=== PATIENT | male | born 1960 | race Caucasian/White ===

== ENCOUNTER 2019-06-26 00:21 | Outpatient (CLI) | payer BC, SELFPAY ==
[2019-06-26 12:50] LABS: CREATININE 0.86 mg/dL (0.70-1.30); Calculated LDL 162 mg/dL; Cholesterol 223 mg/dL (<200); Glucose 78 mg/dL (74-106); HDL Cholesterol 35 mg/dL (40-60); Triglyceride 130 mg/dL (<150)
== END 2019-06-26 00:41 ==
PROVIDERS: PCP Family Medicine; Visit Provider Family Medicine
DX: Z00.00 Encounter for general adult medical examination without abnormal findings (principal); Z13.220 Encounter for screening for lipoid disorders; Z13.1 Encounter for screening for diabetes mellitus
CPT/HCPCS: 36415; 80061; 82947; 82565

== ENCOUNTER 2021-07-05 03:10 | Outpatient (CLI) | payer OTHER, SELFPAY ==
[2021-07-05 16:11] LABS: Calculated LDL 134 mg/dL (<100); Cholesterol 231 mg/dL (<200); Glucose 117 mg/dL (74-106); HDL Cholesterol 44 mg/dL (40-60); Triglyceride 267 mg/dL (<150)
== END 2021-07-05 03:11 | disposition home or self-care (01) ==
LOC: LBO 03:11
PROVIDERS: PCP Family Medicine; Visit Provider Family Medicine
DX: E78.5 Hyperlipidemia, unspecified (principal); R73.9 Hyperglycemia, unspecified; Z12.5 Encounter for screening for malignant neoplasm of prostate
CPT/HCPCS: 36415; 80061; 82947; 84153

== ENCOUNTER 2021-07-11 03:20 | Outpatient (CLI) | payer OTHER, SELFPAY ==
--- NOTE | 2021-07-11 11:00 | NS.NUTBLAN_ITS ---
Costa was referred to [facility] for weight management and strategies to lower cholesterol level. PMH: overweight, hyperlipidemia. BMI 34 Labs: 07/05/21: tri, chol: 231, LDL: 134, HDL: 44. 5'7 218.5 lbs (with boots) Diet recall: beninese yogurt with berries and 1/4 c oatmeal, 12 ritz crackers, sandwich with pringles and 2 puddings, cereal and milk for dinner or grilled chicken and potato. Exercise; walks 1 mile on treadmill and lifts weights couple times per week. Session today focused on how to adjust his meal plan to include less simple carbs, more lean protein and non starchy vegetables. Encouraged Costa to limit carbs to 80-100 grams daily, and aim for 60-80 g protein. Encouraged increased exercise of 14 miles per week with weight lifting of 20 minutes 3 x week. Goal weight:<200 lbs. Suspect 10% weight loss will normalize lipids. Goal weight loss per month: 5 lbs Follow up planned: 08/18/21 at 11 am.
== END 2021-07-11 03:21 | disposition home or self-care (01) ==
LOC: DS 03:20
PROVIDERS: PCP Family Medicine; Visit Provider Dietitian, Registered
DX: E66.3 Overweight (principal); E78.5 Hyperlipidemia, unspecified; Z68.34 Body mass index [BMI] 34.0-34.9, adult; Z71.3 Dietary counseling and surveillance
CPT/HCPCS: 97802

== ENCOUNTER 2021-08-25 02:48 | Outpatient (CLI) | payer OTHER, SELFPAY ==
--- NOTE | 2021-08-25 14:00 | NS.NUTBLAN_ITS ---
Costa returns for weight management counseling. 5'7 Wt: 200 lbs. BMI: 31. Diet: has been following a lower carb diet (80-100 g daily) with increased intake of lean protein and healthy fats. Has lost 18 lbs in 6 weeks and feels great. Has lost 2 pant sizes. Has not been able to exercise due to leg injury but feels well following lower carb, high protein diet. Session today reviewed meal plan and adjusted for increased variety. No new labs, suspect lipids have improved with 9% weight loss. Goal wt: 180 lbs in next 6 months. Follow up scheduled for 03/19/22 at 2 pm.
== END 2021-08-25 02:49 | disposition home or self-care (01) ==
LOC: DS 02:48
PROVIDERS: PCP Family Medicine; Visit Provider Dietitian, Registered
DX: E66.3 Overweight (principal); Z68.31 Body mass index [BMI] 31.0-31.9, adult; Z71.3 Dietary counseling and surveillance
CPT/HCPCS: 97803

== ENCOUNTER 2022-07-11 02:25 | Outpatient (CLI) | payer OTHER, SELFPAY ==
[2022-07-11 14:44] LABS: Calculated LDL 158 mg/dL (<100); Cholesterol 247 mg/dL (<200); HDL Cholesterol 54 mg/dL (40-60); Triglyceride 178 mg/dL (<150)
[2022-07-12 10:02] LABS: PSA, Screening 1.9 ng/mL (<=4.5)
== END 2022-07-11 02:26 | disposition home or self-care (01) ==
PROVIDERS: PCP Family Medicine; Visit Provider Emergency Medicine
DX: E78.5 Hyperlipidemia, unspecified (principal); Z12.5 Encounter for screening for malignant neoplasm of prostate
CPT/HCPCS: 36415; 80061; 84153

== ENCOUNTER 2022-07-30 15:00 | Outpatient (CLI) | payer OTHER, SELFPAY ==
--- NOTE | 2022-07-30 15:00 | NS.NUTBLAN_ITS ---
Costa returns for follow up on weight and lipid management. Wt: 205 lbs down 13 lbs this year. Goal Wt: 190 lbs Diet Recall: yogurt, crackers and cheese, salad, scrambled eggs and toast Exercise: none regular Reviewed meal plan and made suggestions to better meet macronutrient needs for optimal weight loss and development of lean body mass. . Encouraged 150 min exercise per week along with weight training. Goal: 5 lbs weight loss per month. Follow up 12/17/22 at 3 pm.
== END 2022-07-30 16:00 ==
LOC: DS 08-03 11:53
PROVIDERS: PCP Family Medicine; Visit Provider Dietitian, Registered
DX: E66.3 Overweight (principal); E78.5 Hyperlipidemia, unspecified; Z71.3 Dietary counseling and surveillance
CPT/HCPCS: 97803

== ENCOUNTER 2022-11-23 01:33 | Outpatient (CLI) | payer OTHER, SELFPAY ==
[2022-11-23 15:32] LABS: Calculated LDL 165 mg/dL (<100); Cholesterol 246 mg/dL (<200); HDL Cholesterol 54 mg/dL (40-60); Triglyceride 137 mg/dL (<150)
--- NOTE | 2022-12-18 13:32 | W.NUTRFU ---
Date of service: 12/18/22 Time of Service: 13:32 Nutrition Note NOTE: Costa returns for follow up on weight and lipid management. Wt: 212 lbs , up 7 lbs in last 6 months. Goal Wt: 190 lbs Labs: 11/23/22: Chol: 246, LDL: 165, HDL: 54, Tri. Diet Recall: latvian muffin with PB for Breakfast, often snacks during day on cheese and crackers, Dinner: well balanced, home made Exercise: walks 12 miles per week Costa has regained some of his lost weight and lipids remain elevated. His goal is to avoid medication for his hyperlipidemia, however, has been unable to make any significant reductions with life style changes. Only lipid that improved in last year are his triglycerides. Encouraged increased focus on diet and exericse and to follow up with his PCP re: medication options to help lower his LDL cholesterol. Follow up planned 04/01/23 at 3 pm. Time Spent in Nutritional Counseling and Treatment: 30
== END 2022-11-23 01:34 | disposition home or self-care (01) ==
LOC: LBO 01:34
PROVIDERS: PCP Family Medicine; Visit Provider Family Medicine
DX: E78.5 Hyperlipidemia, unspecified (principal)
CPT/HCPCS: 36415; 80061

== ENCOUNTER 2023-02-15 02:18 | Outpatient (CLI) | payer OTHER, SELFPAY ==
[2023-02-18 21:28] LABS: Tissue Transglutaminase Ab IgA <1.2 U/mL; Tissue Transglutaminase Ab IgG 3.3 U/mL
== END 2023-02-15 02:19 | disposition home or self-care (01) ==
PROVIDERS: PCP Family Medicine; Visit Provider Family Medicine
DX: K52.9 Noninfective gastroenteritis and colitis, unspecified (principal)
CPT/HCPCS: 36415; 83516

== ENCOUNTER 2023-05-03 06:10 | Day surgery (SDC) | payer OTHER, SELFPAY ==
--- NOTE | 2023-05-02 20:10 | W.PM.DSUDISC ---
Date of service: 05/03/23 Time of Service: 08:30 Discharge Plan Disposition Patient Disposition: Home Condition: Good Discharge Details Reason For Visit: colon scope Attending Provider: Maricarmen Vanegas Primary Care Provider: Sai Felix Home Meds and New Rx's Prescriptions: Continued Men's 50 Plus Multivitamin 400-20-370 mcg tablet 1 tab PO DAILY Discontinued polyethylene glycol 3350 17 gram/dose powder 17 g PO ONCE Qty: 238 0RF Rx Instructions: Take per colonoscopy instructions provided by ordering providers office bisacodyl [Dulcolax (bisacodyl)] 5 mg tablet,delayed release (DR/EC) 5 mg PO ONCE Qty: 4 0RF Rx Instructions: Take per colonoscopy instructions provided by ordering providers office Discharge Instructions Additional Instructions: [facility] Colonoscopy Post-Op Instructions Instructions for Everyone who is given Anesthesia: For your safety, please do the following for the next twenty-four (24) hours: *Do Not operate a motor vehicle (car, truck, motorcycle, etc.) *Do Not drink alcoholic beverages or use any recreational drugs for the first 24 hours or while taking pain medications. The medications in your body may have a reaction that can be dangerous. *Do Not make any important decisions or sign any important papers. Findings: Follow up: 1. No lifting over 20 pounds or strenuous activity for the first 24 hours after your procedure. After 24 hours there are no restrictions on your activity but you may feel fatigued for a few days. 2. After you arrive home you may have a light meal and return to your normal diet as you can tolerate it without feeling sick to your stomach. 3. You may have a bloated, gaseous feeling in your belly (abdomen) after a colonoscopy. Passing gas and belching will help. Walking or lying down on your left side with your knees flexed may relieve the discomfort. Call the office at [phone] (Office) or [phone] (Hospital) right away if you notice any of the following: a.Vomiting of blood or ?coffee ground stools?. b.Rectal bleeding 1Tbsp, blood clots or continuous bleeding. c.Severe belly (abdominal) pain. d.A hard distended belly (abdomen) and an inability to pass gas. 4. Please don?t expect to have a normal BM (bowel movement) for 2-3 days after your procedure. 5. If there are questions regarding the findings of your procedure, please contact your doctor 6. If you are unable to contact your doctor with a problem, contact the hospital at [phone]. 7. Continue all your regular medications unless directed otherwise. I understand the above instructions and have no questions. Signature of Patient or Adult Escort Name of Responsible Adult Escort Signature of Nurse Date/Time DIVERTICULAR DISEASE OVERVIEW???A diverticulum is a pouch-like structure that can form through points of weakness in the muscular wall of the colon (ie, at points where blood vessels pass through the wall). Diverticulosis affects men and women equally. The risk of diverticular disease increases with age. It occurs throughout the world but is seen more commonly in developed countries. WHAT IS DIVERTICULAR DISEASE? Diverticulosis???Diverticulosis merely describes the presence of diverticula. Diverticulosis is often found during a test done for other reasons, such as flexible sigmoidoscopy, colonoscopy, or barium enema. Most people with diverticulosis have no symptoms and will remain symptom free for the rest of their lives. A person with diverticulosis may have diverticulitis, or diverticular bleeding. Diverticulitis???Inflammation of a diverticulum (diverticulitis) occurs when there is thinning and breakdown of the diverticular wall. This may be caused by increased pressure within the colon or by hardened particles of stool, which can become lodged within the diverticulum. The symptoms of diverticulitis depend upon the degree of inflammation present. The most common symptom is pain in the left lower abdomen. Other symptoms can include nausea and vomiting, constipation, diarrhea, and urinary symptoms such as pain or burning when urinating or the frequent need to urinate. Diverticulitis is divided into simple and complicated forms. ?Simple diverticulitis, which accounts for 75 percent of cases, is not associated with complications and typically responds to medical treatment without surgery. ?Complicated diverticulitis occurs in 25 percent of cases and usually requires surgery. Complications associated with diverticulitis can include the following: ?Abscess ? a localized collection of pus ?Fistula ? an abnormal tract between two areas that are not normally connected (eg, bowel and bladder) ?Obstruction ? a blockage of the colon ?Peritonitis ? infection involving the space around the abdominal organ ?Sepsis ? overwhelming body-wide infection that can lead to failure of multiple organs Diverticular bleeding???Diverticular bleeding occurs when a small artery located within a diverticulum is eroded and bleeds into the colon. Diverticular bleeding usually causes painless bleeding from the rectum. In approximately 50 percent of cases, the person will see maroon or bright red blood with bowel movements. Is bleeding with a bowel movement normal?It is not normal to see blood in a bowel movement; this can be a sign of several conditions, most of which are not serious (eg, hemorrhoids) but some of which are serious and require immediate treatment. Anyone who sees blood after a bowel movement should consult with their healthcare provider to determine if further testing or evaluation is needed. DIVERTICULOSIS AND DIVERTICULITIS DIAGNOSIS???Diverticulosis is often found during tests performed for other reasons. ?Barium?enema ? This is an x-ray study that uses barium in an enema to view the outline of the lower intestinal tract. This is an older test and has been largely replaced by computed tomography (CT) scan. ?Flexible sigmoidoscopy ? This is an examination of the inside of the sigmoid colon with a thin, flexible tube that contains a camera. ?Colonoscopy ? This is an examination of the inside of the entire colon. ?CT scan ? A CT scan is often used to diagnose diverticulitis and its complications. If diverticulitis (not just diverticulosis) is suspected, the above three tests should not be used because of the risk of perforation. TREATMENT Diverticulosis???People with diverticulosis who do not have symptoms do not require treatment. However, most clinicians recommend increasing fiber in the diet, which can help to bulk the stools and possibly prevent the development of new diverticula, diverticulitis, or diverticular bleeding. Fiber is not proven to prevent these conditions in all patients but may help to control recurrent episodes in some. Increase fiber???Fruits and vegetables are a good source of fiber.? Fiber content of packaged foods can be calculated by reading the nutrition label. Seeds and nuts???Patients with diverticular disease have historically been advised to avoid whole pieces of fiber (such as seeds, corn, and nuts) because of concern that these foods could cause an episode of diverticulitis. However, this belief is completely unproven. We do not suggest that patients with diverticulosis avoid seeds, corn, or nuts. Diverticulitis???Treatment of diverticulitis depends upon how severe your symptoms are. Home treatment???If you have mild symptoms of diverticulitis (mild abdominal pain, usually left lower abdomen), you can be treated at home with a clear liquid diet and oral antibiotics. However, if you develop one or more of the following signs or symptoms, you should seek immediate medical attention: ?Temperature >100.1?F (38?C) ?Worsening or severe abdominal pain ?An inability to tolerate fluids Hospital treatment???If you have moderate to severe symptoms, you may be hospitalized for treatment. During this time, you are not allowed to eat or drink; antibiotics and fluids are given into a vein. If you develop an abscess of the colon, you may require drainage of the abscess (usually performed by placing a drainage tube across the abdominal wall) or by surgically opening the affected area. Surgery???If you develop a generalized infection in the abdomen (peritonitis), you will usually require an emergency operation. A two-part operation may be necessary in some cases. ?The first operation involves removal of the diseased colon and creation of a colostomy. A colostomy is an opening between the colon and the skin, where a bag is attached to collect waste from the intestine. The lower end of the colon is temporarily sewed closed to allow it to heal. ?Approximately three to six months later, a second operation is performed to reconnect the two parts of the colon and close the opening in the skin. You are then able to empty your bowels through the rectum. Sometimes patients require up to a year to recover from the first operation, depending on how sick they were. In non-emergency situations, the diseased area of the colon can be removed and the two ends of the colon can be reconnected in one operation, without the need for a colostomy. Surgery versus medical therapy???An operation to remove the diseased area of the colon may be necessary if you do not improve with medical therapy. After an episode of uncomplicated diverticulitis, elective surgery is generally not required as the risk of another attack or requiring emergency surgery is low. However, patients with persistent symptoms attributable to diverticulitis, a history of complicated diverticulitis, or a compromised immune system should be evaluated for possible surgery to prevent another attack. In such patients, another attack has been associated with a higher risk of complications or . Of course, the decision will also depend in part upon your other medical conditions and ability to undergo surgery. In many cases, an elective operation can be performed laparoscopically, using small incisions, rather than the typical vertical (up and down) abdominal incision. Laparoscopic surgery usually allows you to recover more quickly and shortens the hospital stay. After diverticulitis resolves???After an episode of diverticulitis resolves, if you have not had a recent colonoscopy, the entire length of the colon should be evaluated to determine the extent of disease and to rule out the presence of abnormal lesions such as polyps or cancer. Recommended tests include colonoscopy, barium enema and sigmoidoscopy, or CT colonography. Diverticular bleeding???Most cases of diverticular bleeding resolve on their own. However, some people will need further testing or treatment to stop bleeding, which may include a colonoscopy, angiography (a treatment that blocks off the bleeding artery), bleeding scan, or surgery. DIVERTICULAR DISEASE PROGNOSIS Diverticulosis???Over time, diverticulosis may cause no problems or it may cause episodes of bleeding and/or diverticulitis. Approximately 15 to 25 percent of people with diverticulosis will develop diverticulitis, while 5 to 15 percent will develop diverticular bleeding. Diverticulitis???Approximately 85 percent of people with uncomplicated diverticulitis will respond to medical treatment, while approximately 15 percent of patients will need an operation. After successful treatment for a first attack of diverticulitis, one-third of patients will remain asymptomatic, one-third will have episodic cramps without diverticulitis, and one-third will go on to have a second attack of diverticulitis. The prognosis tends to remain similar following a second attack of diverticulitis. Only 10 percent of people remain symptom-free after a second attack. Subsequent attacks tend to be of similar severity, not increasing in severity as previously believed. High Fiber Diet What is Dietary Fiber? All fiber comes from plants, bushes, ahmet or trees.? Of course, the ones that we eat provide us with fruits, vegetables and grains.? There are many different types of fiber but the three that are most important to the health of the body are: Insoluble Fiber This fiber does not dissolve in water, nor is it fermented by the bacteria residing in the colon.? Rather, it retains water and in so doing, helps to promote a larger, bulkier and more regular bowel activity.? This, in turn, may be important in preventing disorder such as diverticulosis and hemorrhoids, and in sweeping out certain toxins and cancer causing carcinogens.? Sources of insoluble fiber are: ? whole grain wheat and other whole grains ? corn bran, including popcorn, unflavored and unsweetened ? nuts and seeds ? potatoes and the skins from most fruits from trees such as apples, bananas and avocados ? many green vegetables such as green beans, zucchini, celery and cauliflower ? some fruit plants such as tomatoes and kiwi Soluble Fiber These fibers are fermented or used by the colon bacteria as a food source or nourishment.? When these good bacteria grow and thrive, many health benefits occur in both the colon and the body.? Soluble fiber is present in some degree in most edible plant foods, but the ones with the most soluble fiber include: ? legumes such as peas and most beans, including soybeans ? oats, rye and barley ? many fruits such as berries, plums, apples bananas and pears ? certain vegetables such as broccoli and carrots ? most root vegetables ? psyllium husk supplement products Benefits of a High Fiber Diet The health benefits of a high fiber diet, consumed on a regular basis and reaching recommended amounts (below), are now fairly well-defined. There are some additional benefits in the early research stage with the prebiotic soluble fibers. What is now known regarding a high fiber diet include: Bowel Regularity A high fiber diet promotes regularity with a softer, bulkier and regular stool pattern. This decreases the chance of hemorrhoids, diverticulosis and perhaps colon cancer. Cholesterol and Reduced Triglycerides The soluble fibers are the ones that will reduce cholesterol levels when used on a regular basis. Psyllium husk and prebiotic soluble fiber will also reduce cholesterol. They may also reduce the incidence of coronary heart disease. Oats, flax seeds and legumes or beans are the recommended fibers. Colon Polyps and Cancer It is still not certain if a high fiber diet helps prevent colon cancer. Considerable research suggests that this may occur. Certainly it makes sense to increase regularity and so speed the movement of cancer causing carcinogens through the bowel. In addition, reducing a heavy meat diet reduces the bile flow from the liver in a favorable way. This, too, reduces the amount of carcinogens that reach and are manufactured in the colon. Finally, a high fiber diet, including prebiotic soluble fiber, increases the integrity and health of the wall of the colon. The risk of cancer may be reduced. Colon Wall Integrity A high fiber diet changes the bacterial makeup of the colon toward a more favorable balance. For instance, it is known that those people with obesity, diabetes type 2 and inflammatory bowel disease have a predominance of bad bacteria in the colon. This, in turn, may render the bowel wall weak and allow bacteria and, indeed, even toxins to seep through. A high fiber diet with a modest reduction in animal and meat products may return the bacterial makeup to a more positive balance. This, in particular, has been seen when the soluble fiber prebiotics are added to the diet. Blood Sugar Soluble fiber such as in legumes (beans), oats and in prebiotic fibers slows the absorption of blood sugar and so helps regulate the sugar in the blood. Insoluble fiber on a regular basis is associated with reduced risk of type 2 diabetes. Weight Loss High fiber diets are more filling and give a sense of fullness sooner than an animal and meat based diet does. In addition, the soluble prebiotic fibers have been shown to turn off the hunger hormones produced in the wall of the gut and to increase the hormones that give a sense of fullness. Those hormones are made in the wall of the gut. New medical research has shown that the bacterial makeup in the colon in overweight people is abnormal to the extent that they manufacture and absorb almost twice the number of calories through the colon wall as do normals. Prebiotic fibers (below) will help change this hormonal balancein a favorable way. Bacteria and the Function of the Colon The colon finishes the digestive process. Hopefully, the waste products move through in a nice regular manner. Insoluble fibers help this process by retaining water and so producing a bulkier, softer stool, which is easy to pass. The additional role of the colon is to provide a home for an enormous number of micro-organisms, mostly bacteria. Recent research has shown that there are over 1,000 species of bacteria with a total bacterial count ten times the number of cells in the body. These bacteria play a major role in keeping the colon wall itself healthy. In addition, these good bacteria produce a very strong immune system for the body. They significantly increase calcium absorption and bone density. They provide other documented benefits. It is the soluble fibers in the diet that are so effective in stimulating the growth of good colon bacteria. How Much is Enough? The amount of fiber in food is measured in grams.? National nutritional authorities recommend the following amounts of dietary fiber daily. Under Age 50? Over Age 50 Men? 38 grams? 30 grams Women??? 25 grams? 21 grams For a week or so, it is best to tally the amount of fiber you are consuming.? Boxed and packaged foods will have the amount of fiber per serving on the nutrition label. Which Fibers and Which Foods are Best? As noted, healthy fiber is only found in plants. The three major categories are whole grains, fruits and vegetables. Whole Grains Wheat, oats, barley, wild or brown rice, amaranth, buckwheat, bulgur, corn, millet, quinoa, rye, sorghum, teff and triticals. By far, wheat, oats and wild or brown rice are most common. Always buy whole grain products. White bread, baked goods and rolls almost always are made from wheat flour. Wheat flour is white because most of the fiber, vitamins and other nutrients have been removed. Try not buy enriched grains. What this means is that simple white flour has had vitamins added to it by the model technician. The word, enriched, implies a good and healthy product. On the contrary, enriched means that most of the fiber has been removed and a few vitamins added. Fruits Fruits come from trees such as apple and pear or from bushes or ahmet. You should eat a wide variety of fruits, preferably with every meal. In many cases, the skin of a fruit such as apple will contain much of the insoluble fiber while the pulp contains most of the soluble fiber. To the extent possible, buy organic fruits as these will have little or no pesticides. Always wash fruit. Vegetables Eat a wide variety of vegetables. They should be a mainstay of lunch and dinners. Frozen vegetables retain as much nutrition and fiber as fresh vegetables. As with fruit, try to buy organic to reduce any residual pesticide ingestion. Wash fresh vegetables thoroughly. Cruciferous vegetables such as broccoli, [place] sprouts and cauliflower contain certain chemicals such as sulforaphane. This substance has very strong anti-cancer properties and should be eaten frequently. Legumes, Beans, Peas and Soybeans These vegetables have plenty of soluble fiber and should be part of a varied vegetable intake. Beans, in particular, contain a certain type of fiber that may lead to harmless gas or bloating. Nuts and Seeds These are rich sources of fiber and are a good substitute for sweets such as candies and baked sweet goods. While nuts and seeds are rich in fiber, they also contain vegetable fat and so can and do add calories. Read the Labels As noted, fresh and frozen foods are usually better.? They have good nutrition and few, if any, chemicals added to them.? When buying packaged foods and, in particular grains, look for three things: ? The first word on the label should be whole, such as whole wheat or whole grain. ? Check out the calories and the amount of fiber in a serving. ? How many and what other additives or chemicals are added.? Fewer is always better.? Do you know what each additive does?? Some are added not for the benefit of the fruit buyer but rather for manufacturers.? These could and do include sugar, artificial flavor, chemicals to prevent oxidation and spoilage, emulsifiers to blend the product.? You have to be a detective homicide squad. Fiber Facts, Nuggets and Pearls ? For breakfast you can easily get the day started well by using a high fiber, whole grain cereal.? Check the labels.? Add fruit such as blueberries and bananas.? If you are an egg eater, use whole wheat or grain toast.? Adding wheat germ gives you a good fiber kick. ? Always use whole grain or wheat with rolls and sandwiches.? Does your fast food store not have them?? Perhaps you look elsewhere.? Eating an occasional black ward or veggie burger provides variety. ? Snacks should consist of fruit and/or nuts.? While nuts are loaded with fiber, they are an energy rich food, meaning they have a lot of calories in a small packet. ? Fruit juices should contain pulp.? Clear juices such as clear orange, pear or apple juice contain little fiber and have a lot of fructose.? Prune juice is usually high in fiber. ? Homemade soups ? adding fresh or frozen vegetables to a chicken or vegetable stock is a good way to start homemade soup. ? Salads ? adding cooked and then chilled vegetables provide great flavoring to almost any salad.? Remember, a balderas salad has lots of cooked corn in it.? Small slices of apples or oranges and nuts such as chopped walnuts or sliced almonds always adds taste, variety and fiber to almost any salad. ? Fruit ? Try to eat fruit of some type with almost every meal. ? Rethink how you place the various foods on your dinner plate.? Reducing the portions of the meat or animal food portion to the side with equal or more portions of vegetables, legumes and fruits portion always allows for more fiber.? There was never anything magic about making the meat or animal food portion the main part of the dinner plate.? Eating from smaller plates can, over time, trick your mind and equipment operator intermodal yard habit of using a dinner plate.? Again, there is nothing magic in an 11, 12, or 13 inch dinner plate. Fiber Supplements There are a variety of fiber supplements available on the food or pharmacy shelves. Psyllium This soluble plant fiber has been used in [place] for over 2,000 years. It is a soluble fiber with mucilage in it. This acts to retain a lot of water and also is fermented by colon bacteria. When 7 grams a day are used, it does lower cholesterol. Metamucil in various forms is psyllium. Methyl Cellulose All the cellulose products come from finely ground wood chips which are then treated in a variety of ways such as boiling in acids. Methyl cellulose is an insoluble fiber which does dissolve in water. It is also an emulsifier, meaning it blends oils and water. Citrucel is methyl cellulose (MC). MC may not be appropriate for Crohn?s disease or ulcerative colitis as several medical studies have shown that certain emulsifiers dissolve the mucous lining of the colon in animals prone to Crohn?s disease. This then allows bacteria to invade the underlying tissue. Fiber and Gas Everyone has intestinal gas and that is a good thing.? It means that bacteria, hopefully the good ones, are thriving.? The normal amount of flatus passed each day depends on sex and what is eaten.? The normal number of flatus is 10-20 times a day.? When the bacteria that make intestinal gases are growing, it also means that other good bacteria are using the same fibers to grow and produce multiple health benefits, including the production of healthy short-chain fatty acids.? These substances are produced quietly in the colon and produce many health-related outcomes. Soluble fiber should always be used in a gradual manner.? If too much is consumed at any one time, then excess, but harmless, intestinal gas can occur.? People with irritable bowel syndrome are particularly prone to bloating and mild cramping.? In this instance, soluble fiber in the diet or supplement should be used in small doses and increased gradually. Finally, prebiotic fibers tend to cause the production of short-chain fatty acids which acidify the colon.? This, in turn, reduces or stops the growth of bacteria that make the smelly hydrogen sulfide gases that produce noxious flatus.? People who consume many vegetables with prebiotics or take a prebiotic fiber supplement often have non-odoriferous flatus. Fiber and Irritable Bowel Syndrome Irritable bowel syndrome (IBS) is one of the most common disorders of the lower digestive tract.? The symptoms of IBS can be quite varied.? They can be a mix of several symptoms such as constipation, diarrhea, crampy abdominal discomfort, bloating and gas.? An attack of IBS can be triggered by emotional tension and anxiety, poor dietary habits and certain medications.? It is now known that infections in the intestine can lead to long-term IBS symptoms.? Increased amounts of fiber in the diet can help relieve the symptoms of irritable bowel syndrome by producing soft, bulky stools.? This helps to normalize the time it takes for the stool to pass through the colon.? Recent medical research with newer techniques has shown some surprising and dramatic findings for IBS patients.? Specifically, there is a very significant and abnormal shift of bacteria from those that provide health benefits to those bad bacteria that we really do not want in the gut.? The technical name for this bad group of bacteria is called Firmicutes.? Along with this abnormal bacterial collection, there is a smoldering low-grade inflammation in the gut wall that may contribute to symptoms.? The goal for IBS patients should be to gradually increase the soluble dietary fibers in the diet so as to promote the growth of good bacteria and so suppress the bad ones along with the associated inflammation. IBS patients need to be careful of the amount of soluble fiber they consume.? The reason for this is that, while the good colon bacteria thrive on these fibers and produce health benefits, other gas-forming bacteria may generate excessive but harmless gas and subsequent bloating.? Thus, soluble plant fibers or a dietary prebiotic supplement should be taken in small initial doses and then gradually increased to tolerance. Fiber and Colon Polyps/Cancer Colon cancer is a major health problem. This disease is most common in Western cultures. It is not seen very often in rural cultures where the diet is mostly plant based. Usually, colon cancer starts out as a colon polyp, a benign mushroom-shaped growth. In time it grows, and in some people it becomes cancerous. Colon cancer is usually always curable if polyps are removed when found or if surgery is performed at an early stage. It is now known that people can inherit the risk of developing colon cancer, but diet is important, too. As noted, there is a very low rate of colon cancer in residents of countries where grains are unprocessed and retain their fiber. It seems that in the [place] world, cancer-containing agents (carcinogens) remain in contact with the colon wall for a longer time and in higher concentrations. So, a large bulky stool may act to dilute these carcinogens by moving them through the bowel more quickly. Less carcinogenic exposure to the colon may mean fewer colon polyps and less cancer. A very current review of the entire world?s literature on the effect of fiber on colon polyps and cancer prevention has shown rather clearly that for every 10 grams of fiber added to the diet, there is a 10% reduction in incidence of colon cancer. So the recommended 30 gram fiber diet would result in a 30% less chance of getting these tumors. There are also substances produced in the colon by the good bacteria that seem to retard certain pre-cancer factors from developing. They are called short-chain fatty acids (SCFA). See above for description of SCFAs. A high fiber diet increases these substances. So, the combination of dietary fiber and the production of short-chain fatty acids have a clear health benefit. Fiber and Diverticulosis Prolonged, vigorous contraction of the colon over a long period of time may result in diverticulosis.? This increased pressure causes small and, eventually, larger ballooning pockets to form.? These pockets by themselves cause no problem.? However, sometimes they become infected (diverticulitis) or even break open (perforate) causing infection or inflammation within the abdomen (peritonitis).? A high fiber diet increases the bulk in the stool and thereby reduces the pressure within the colon.? By so doing, the formation of pockets may be reduced or possibly even stopped. In the past, many physicians were fearful that seeds as in tomatoes, nuts or berries were harmful and could get inside these pockets and rattle around, causing damage. We now know that this has never been the case and that these foods contain lots of fiber and are actually beneficial for diverticulosis patients. Certain bulking agents such as psyllium are traditional types of bulk producing supplements.? Psyllium is a soluble fiber.? Combining it with insoluble fiber as in wheat bran or corn bran (no gluten) can enhance this bulking effect even more.? A product containing a prebiotic, psyllium and wheat bran is probably a very good combination for bowel regularity. Prebiotin Regularity/Diverticulosis is one such product. Starting a Fiber Supplement ?When consumed at recommended levels,?dietary fiber1?is widely recognized to have health benefits, including relief of?constipation1. Adult women 50 and younger should consume at least 25 grams of fiber a day. Women 51 and older should have at least 21 grams a day. Adult men need at least 38 grams of fiber a day if they are younger than 50 and at least 30 grams of fiber a day if they are 51 and older. Ninety percent of the [place] population consumes far below those recommendations, averaging only 15 grams of daily fiber. Fiber-rich foods include fruits, vegetables, whole grains and legumes. Many cereals, such as bran flakes, are good sources of fiber. Although fiber supplements can fill the daily fiber gap, they usually have only one type of fiber, rather than a variety of fibers and micronutrients, and they may not provide all the health benefits associated with fiber in food. Therefore, boost your fiber intake in your diet first by eating a wide variety of high-fiber foods. If you still can?t get enough fiber to meet the daily recommendation, consider using a supplement. Many fiber supplements can be used regularly equipment operator [employer]. Fiber is classified as soluble or insoluble. Soluble fibers are more fermentable and may cause gas. Insoluble fibers move through the digestive system largely intact, and that can increase stool bulk. Most fiber supplements are exclusively soluble or insoluble fiber. For example, FiberCon (calcium polycarbophil) and Benefiber (wheat dextrin) are mainly soluble fiber. They tend to cause more bloating and flatulence. Citrucel (methylcellulose) is mainly insoluble fibers that are nonfermentable, so it?s less likely to contribute to bloating and gas. Psyllium husk (Metamucil and Konsyl) is rich in both soluble and insoluble fiber. Generally, fiber supplements with mainly insoluble fiber may be a better option for constipation. Before taking a fiber supplement, ask your health care provider or pharmacist to review your medications. Fiber supplements can decrease the absorption of certain medications, including drugs that treat thyroid disorders,?depression,?diabetes,?high cholesterol,?seizures?and various heart ailments. Even common medications such as aspirin, ibuprofen and penicillin can be affected by an increase in fiber. You may take your medications one hour before or two hours after eating fiber to minimize the interaction. Some fiber supplements may not be appropriate for people with certain medical conditions. For example, if you have celiac disease, you may need to stay away from fiber products derived from wheat. If you have diabetes, you may need to use a flavorless formula to avoid extra sugar. Consult your health care provider for guidance about the appropriate fiber supplement. Go slow as you begin fiber therapy. Fiber supplements may cause abdominal bloating, cramping and flatulence, especially if you start at a high dose. Begin with a low dose, gradually increasing the amount of fiber. Don?t add more than 50 grams of fiber in a supplement per day, as that may affect how your body absorbs nutrients. Your health care provider can help determine what?s right for you. Drinking plenty of water and exercising regularly can help ease constipation, too. If increasing fiber doesn?t improve your symptoms, see your health care provider. Constipation can be a symptom of various underlying medical disorders, such as pelvic floor muscle dysfunction, slow gastrointestinal motility, anatomical abnormalities or endocrine dysfunction that may require different treatment.? Stand Alone Forms: Julius Ricardo (DSU) Activity:: see above Diet:: see above Discharge Orders Discharge Orders: Discharge Order (Routine); Ordered 05/03/23 Ordered By: Maricarmen Vanegas DS: Diagnosis Discharge Diagnosis (1) Chronic diarrhea: Status: Acute (2) Hyperglycemia: Status: Acute (3) Screening for colon cancer: Status: Acute Asessment and Plan: The patient is seen and examined after their colonoscopy.? The patient has been able to pass gas.? They are not having abdominal pain.? They have been able to tolerate liquids and a snack.? They do not have any nausea or vomiting.? They are not having any chest pain or shortness of breath.??? They are not having any rectal bleeding. Their vital signs have been stable-see nursing notes. We discussed findings during their colonoscopy, and any biopsies that were done/polyps that were removed. The patient will be sent a letter with any biopsy results, and when to repeat the colonoscopy.-see discharge instructions. Patient was given explicit instructions to follow-up regarding colonoscopy-refer to discharge instructions.? We reviewed resumption of medications. Patient verbalized understanding and discharged in stable and satisfactory condition- See nursing notes. (4) Hyperlipidemia: Status: Acute (5) History of tobacco use: (6) Screening for malignant neoplasm of colon performed: Status: Acute
--- NOTE | 2023-05-02 20:15 | W.COLOREPORT ---
Date of service: 05/03/23 Time of Service: 08:27 Colonoscopy Report Date of procedure: 05/03/23 Pre-op diagnosis general: chronic diarrrhea/CRC screening Post-op diagnosis procedure note: other (Severe diverticula. Multiple colon polyps) Surgeon: Maricarmen Vanegas Anesthesia Type: General:No Airway Estimated blood loss (mL): 5 Pathology: other Complications: None Disposition: same day Prep: Miralax/Dulcolax Retraction Time: 20 Procedure Description: After informed consent was obtained the patient was taken to the procedure room and placed in a left decubitous position. Monitors were applied and a time out was done. The patients name, date of , procedure, allergies to medications and metal in their body was reviewed. The patient was then sedated. Once sedated and comfortable a rectal exam was done. External exam was normal. Internal exam revealed a normal sphincter tone and no palpable masses. The prostate normal The scope was then introduced and retrofelexed. internal hemorrhoids were identified. The scope was then advanced to the cecum without difficulty. The TI and appendiceal orifice were identified. The prep was BBPS 3 in all segments for total of 9. The scope was then slowly retracted over 20 minutes back into the rectum. He has severe sigmoid that do carry all the way over to the transverse colon. They are numerous large-mouthed diverticula. There is no signs of active bleeding or infection. He has multiple polyps that we removed today. He had x2 polyps at 80 cm. Both of these are flat 0.75 cm polyps that are removed with a cold snare. He had a flat 5 mm polyp at 60 cm that is removed with a cold biting forcep. He had x3 flat 0.75 cm polyps at 25 cm that are removed with cold biting snare. He had a large 2 cm polyp on a long stalk that is removed with a hot forceps at 50 cm. A clip was not applied. All specimens are retrieved and no bleeding is noted. The scope was removed and the patient was woken up and taken back to Same day surgery in stable condition. The patient tolerated the procedure well and there were no immediate complications. Follow up: The patient should follow up in 2 years unless they develop changes in bowel habits or other new gastrointestinal complaints.
[2023-05-03 06:48] VITALS: BP 157/102; PULSE 94; RESP 16; TEMP 36.6; O2SAT 94
[2023-05-03 06:54] VITALS: BP 129/91
[2023-05-03 07:18] VITALS: BMI 33.2
[2023-05-03] MEDS: Lactated Ringers 1,000 ML 80 ML IV (07:18)
--- NOTE | 2023-05-03 07:18 | W.ANESPRE ---
General Info Date of Service Date Performed: 05/03/23 Height: 5 ft 7 in Weight: 96.3 kg Body Mass Index (BMI): 33.2 Surgical Procedure: Operation Date: 05/03/23 07:35 Proposed Procedure Side Surgeon jessica Vanegas, Meds Allergies and Home Medications Allergies Allergy/AdvReac Type Severity Reaction Status Date / Time No Known Allergies Allergy Verified 05/03/23 06:46 Home Medication Medication Instructions Recorded btijnsvgwflx-gih-jswbh acid-vit 1 tab PO DAILY 06/19/19 K-lycop 400 mcg-20 mcg-370 mcg tablet (Men's 50 Plus Multivitamin) Current Visit Medications: Current Medications Generic Name Dose Route Start Last Admin Trade Name Freq PRN Reason Stop Dose Admin Hyoscyamine Sulfate 0.125 mg 05/03/23 02:49 Hyoscyamine 0.125 Mg Sl/Oral/Chew SL 06/02/23 02:48 DIRECTED PRN Ringer's Solution 1,000 mls @ 80 mls/hr 05/03/23 06:00 IV 06/01/23 23:59 INFUSION JULIA IV Miscellaneous Supplies 1 each 05/03/23 06:00 Iv Access IV 06/01/23 23:59 DIRECTED JULIA Ondansetron HCl 4 mg 05/03/23 02:49 Ondansetron 4 Mg/2 Ml Vial IVP 06/02/23 02:48 Q4H PRN PRN Nausea / Vomiting Sodium Chloride 0 ml 05/03/23 06:00 Normal Saline Flush 10 Ml Syr IV 06/01/23 23:59 PRN PRN Sodium Chloride 0 ml 05/03/23 06:00 Normal Saline 10 Ml Vial IJ 06/01/23 23:59 DIRECTED PRN Sterile Water 0 ml 05/03/23 06:00 Water,Injection,Sterile 10 Ml Vial IJ 06/01/23 23:59 DIRECTED PRN PFSH Active Problems Active Problems: Problem Status Onset Code Screening for malignant neoplasm of colon performed Z12.11 Chronic diarrhea K52.9 Hyperglycemia R73.9 Screening for colon cancer Z12.11 Hyperlipidemia E78.5 Encounter for herpes zoster vaccination Z23 Dupuytren's contracture of both hands M72.0 Umbilical hernia K42.9 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 Vanessa MARKHAM Vasectomy Repair of inguinal hernia Right hernia repair . Left hernia repair with mesh done by Dr. Markham Tobacco Smoking/Tobacco Use Status: Former Tobacco Use Passive smoking exposure: Yes Second hand exposure: Yes Alcohol Alcohol Intake: current Alcohol intake frequency: holidays/special occasions only Alcohol type: beer and wine Substance Use Substance use: Never Substance use type: does not use Vital Signs and Lab Results Vital Signs Most Recent Vital Signs in EMR: Most Recent Vital Signs Temp Pulse Resp BP Pulse Ox 36.6 C 94 H 16 129/91 H 94 05/03/23 06:48 05/03/23 06:48 05/03/23 06:48 05/03/23 06:54 05/03/23 06:48 Lab Results Blood Type / Crossmatch: No Data to Display Complete Blood Count: No Data to Display Complete Metabolic Panel: No Data to Display Liver Function Panel: No Data to Display Coagulation Panel: No Data to Display Cardiac Panel: No Data to Display Arterial Blood Gas: No Data to Display Venous Blood Gas: No Data to Display Pancreas Panel: No Data to Display Thyroid Panel: No Data to Display Infectious Disease: No Data to Display Blood Cultures: No Data to Display Toxicology Panel: No Data to Display Anesthesia Assessment and Plan Anesthesia History Personal History: No History of Anesthesia Complications Family History: No Family History of Anesthesia Complications Exercise Tolerance Exercise Tolerance: Metabolic Equivalents>4 Pertinent Negatives Pertinent Negatives: No Symptoms of GERD Cardiac & Pulmonary Exam Cardiac Exam: Normal S1/S2 Heart Sounds Pulmonary Exam: Clear Bilateral Breath Sounds Implantable Cardiac Device Does patient have a Pacemaker or an ICD?: No Airway Exam Known Difficult Airway: No Mallampati Class: 2 Mouth Opening: Normal (> 3cm) Thyromental Distance: Greater than 3 cm Neck Range of Motion: Full ROM Neck Circumference: Normal Teeth Condition: Normal Dentition ASA Classification ASA Score: ASA 2 Emergency Case?: No NPO Status NPO Status: NPO Clears >2 hours, Solids >8 hours Anesthesia Plan Resuscitation Status: Full Code Anesthesia Technique: General Anesthesia Airway Planned: Natural Airway Monitors Used: Standard Monitors
--- NOTE | 2023-05-03 07:43 | BOWEL_PTH ---
PATIENT: Antonino Scott JR LOC: [facility] U#:[id number] AGE/SX: 63/M ROOM: RE05/03/[address]: Maricarmen Vanegas : 1960 BED: DIS: 05/03/2023 SPEC #: [id number] RECD: 05/03/23 12:20 STATUS: BRY REQ #: [id number] SHELBY: 05/03/23 07:[address]: Maricarmen Vanegas DEPT: Surgical Specimen RECD BY: Ronel Lu ENTERED: 05/03/23 12:20 SP TYPE: Bowel OTHR DR: Sai Felix MD Tissues: 1 - BIOPSY BOWEL 2 - BIOPSY BOWEL 3 - BIOPSY BOWEL 4 - BIOPSY BOWEL Procedures: GROSS AND MICRO LEVEL 4 Comments: [id number]
[2023-05-03 08:16] VITALS: BP 105/70; PULSE 90; RESP 18; TEMP 36.4; O2SAT 94
--- NOTE | 2023-05-03 08:22 | W.ANESPOSTOP ---
Postoperative Evaluation Date, Time and Location Date Performed: 05/03/23 Time Performed: 08:22 Patient Location: Day Surgery Unit Vital Signs Most Recent Imported Vital Signs: Most Recent Vital Signs Temp Pulse Resp BP Pulse Ox 36.6 C 94 H 16 129/91 H 94 05/03/23 06:48 05/03/23 06:48 05/03/23 06:48 05/03/23 06:54 05/03/23 06:48 Pain Score Most Recent Pain Score: Most Recent Pain Score Pain Level 0 05/03/23 06:48 Assessment Mental Status: Awake (Alert & Oriented to Patient Baseline) Airway and Respiratory Function: Patent airway with normal (patient baseline) respiratory exam Cardiovascular Function: Hemodynamically Stable Hydration Status: Adequately Hydrated Nausea & Vomiting: No Nausea or Vomiting Pain: Pt. Denies Any Pain Peripheral Nerve Block: Patient did not receive a nerve block
[2023-05-03 08:40] VITALS: BP 125/97; PULSE 85; RESP 18; TEMP 36.5; O2SAT 94
== END 2023-05-03 09:12 | disposition home or self-care (01) ==
LOC: SUR 06:11
PROVIDERS: PCP Family Medicine; Visit Provider Surgery
PROC: 0DJD8ZZ Inspection of Lower Intestinal Tract, Via Natural or Artificial Opening Endoscopic (ICD-10-PCS; CPT 45378; principal; 2023-05-03 07:30)
DX: Z12.11 Encounter for screening for malignant neoplasm of colon; D12.5 Benign neoplasm of sigmoid colon; K57.30 Diverticulosis of large intestine without perforation or abscess without bleeding; Z87.891 Personal history of nicotine dependence; D12.4 Benign neoplasm of descending colon
CPT/HCPCS: 45385; 45384; 88305; J2001; J2704

== ENCOUNTER 2024-04-09 03:00 | Outpatient (CLI) | payer OTHER, SELFPAY ==
[2024-04-09 17:28] LABS: Hemoglobin A1C 5.9 % (<5.7)
[2024-04-09 17:55] LABS: BUN 11 mg/dL (7-18); Calcium 9.8 mg/dL (8.5-10.1); Calculated LDL 171 mg/dL (<100); Chloride 102 mmol/L (98-107); Cholesterol 256 mg/dL (<200); Glucose 83 mg/dL (74-106); HDL Cholesterol 53 mg/dL (40-60); Potassium 3.6 mmol/L (3.5-5.1); Sodium 138 mmol/L (136-145); Triglyceride 161 mg/dL (<150)
[2024-04-13 10:26] LABS: HIV-1/2 Ag & Ab Screen Negative (Negative)
[2024-04-13 10:31] LABS: Hepatitis C Ab w Rflx HCV PCR Negative (Negative)
[2024-04-13 10:37] LABS: HBs Antibody, Quant <3.1 mIU/mL (See Note); Hep B Surface Ab Negative (See Note); Hepatitis B Core Antibody Negative (Negative); Hepatitis B Surface Antigen Negative (Negative)
== END 2024-04-09 03:01 | disposition home or self-care (01) ==
PROVIDERS: PCP Family Medicine; Visit Provider Family Medicine
DX: E11.51 Type 2 diabetes mellitus with diabetic peripheral angiopathy without gangrene (principal); I70.209 Unspecified atherosclerosis of native arteries of extremities, unspecified extremity; Z00.00 Encounter for general adult medical examination without abnormal findings; E78.5 Hyperlipidemia, unspecified; Z11.59 Encounter for screening for other viral diseases; E87.1 Hypo-osmolality and hyponatremia
CPT/HCPCS: 36415; 80048; 80061; 86704; 86706; 86803; 87340; 87389; 83036

== ENCOUNTER 2025-04-05 07:32 | Outpatient (CLI) | payer OTHER, SELFPAY ==
[2025-04-05 14:11] LABS: Hemoglobin A1C 5.7 % (<5.7)
[2025-04-06 15:15] LABS: Calculated LDL 161 mg/dL (<100); Cholesterol 234 mg/dL (<200); HDL Cholesterol 48 mg/dL (>or=40); Triglyceride 129 mg/dL (<150)
== END 2025-04-05 07:33 | disposition home or self-care (01) ==
LOC: LOS 07:32
PROVIDERS: PCP Family Medicine; Visit Provider Family Medicine
DX: E78.5 Hyperlipidemia, unspecified (principal); E11.51 Type 2 diabetes mellitus with diabetic peripheral angiopathy without gangrene; I70.209 Unspecified atherosclerosis of native arteries of extremities, unspecified extremity
CPT/HCPCS: 36415; 80061; 83036